=== PATIENT | female | born 1970 | race Caucasian/White ===

== ENCOUNTER 2022-11-29 11:54 | Emergency (ER) | payer BC, SELFPAY ==
[2022-11-29 12:06] VITALS: BP 150/86; PULSE 81; RESP 16; TEMP 36.5; O2SAT 99
--- NOTE | 2022-11-29 12:29 | ED.EXTPRO ---
HPI - Extremity Problem General Chief complaint: Unspecified Stated complaint: right hip pain Time Seen by Provider: 11/29/22 12:29 Source: patient and RN notes reviewed Mode of arrival: ambulatory Limitations: no limitations History of Present Illness HPI Narrative: 52 year old female presents with concern for right hip pain for 2 weeks. She denies injury or trauma. She has been remodeling a house and has been more active. She reports her hip is only mildly painful when she walks, she reports it is mostly painful when she has been sitting for a while and she stands that. Reports she has been sitting in down on the floor ?[place] style? a lot while remodeling her bathroom. She reports she has been taking ibuprofen daily with some mild relief. She reports a feeling like her thigh is ?asleep?. She denies weakness in the lower extremity. She denies back pain, groin pain, problems with bowel or bladder. MD Complaint: extremity pain Related Data Home Medications Medication Instructions Recorded Confirmed cetirizine 10 mg tablet (Zyrtec) 10 mg PO DAILY 11/29/22 11/29/22 fluticasone propionate 50 1 spray intranasal DAILY 11/29/22 11/29/22 mcg/actuation nasal spray,suspension lansoprazole 30 mg capsule,delayed 30 mg PO DAILY 11/29/22 11/29/22 release (Prevacid) meclizine 25 mg tablet 25 mg PO BID PRN Dizziness Or 11/29/22 11/29/22 Vertigo Allergies Allergy/AdvReac Type Severity Reaction Status Date / Time codeine Allergy Mild Other Verified 11/29/22 12:05 hydrocodone Allergy Mild Other Verified 11/29/22 12:05 sulfamethoxazole Allergy Mild makes Verified 11/29/22 12:05 sick trimethoprim Allergy Mild makes Verified 11/29/22 12:05 sick Estrogens Allergy Unknown FROM Verified 11/29/22 12:05 CONTROL PILLS Progestins Allergy Unknown FROM Verified 11/29/22 12:05 CONTROL PILLS HYDROCODONE BIT Allergy Mild HEART RACES Uncoded 11/29/22 12:05 PCN Allergy Mild VAGINAL Uncoded 11/29/22 12:05 IRRITATION Review of Systems Review of Systems: CONSTITUTIONAL: Denies malaise, chills, sweats, or fever. CARDIOVASCULAR: Denies chest pain, palpitations, or edema. RESPIRATORY: Denies cough or dyspnea. SKIN: Denies rash or itching, bruising, redness, swelling. MUSCULOSKELETAL: Reports right hip pain NEUROLOGIC: Denies numbness, weakness All systems reviewed & are unremarkable except as noted in HPI and below PMFSH Family History Family History (Updated 12/14/13 @ 07:13 by DOCTOR UNKNOWN) Mother Hypertension Social History Social History Smoking status: Never smoker Alcohol intake: never Comments At time of signature, agree with nursing past medical, surgical, social and family history. There is no relevant family history pertinent to the presenting complaint Exam Narrative: GENERAL: Well-appearing, well-nourished, and in no acute distress. HEAD: Normocephalic, atraumatic. EYES: PERRLA, conjunctivae clear NECK: Supple. CHEST: Speaks in full sentences. No respiratory distress. HEART: Regular rate and rhythm. Normal and equal peripheral pulses. EXTREMITIES: Right hip and lower extremity has grossly normal strength and sensation, normal range of motion. No edema or ecchymosis. 5/5 strength with hip abduction and adduction. Normal sensation with sensitivity to light touch and pain. Lateral hip tenderness, no low back tenderness, groin tenderness, thigh tenderness. No open wounds, no skin tenting, no devitalized tissue or atrophy, no trophic changes, no obvious deformity, alignment normal, nearby joints and structures intact. Distal pulses palpable and equal bilaterally, skin warm, dry, pink. Capillary refill less than 3 seconds. SKIN: Warm, dry, no rash. NEURO: Alert and oriented x3. PSYCH: Normal mood and affect Course Course Emergency Course: Patient did not have any trauma or injury to her hip. Patient's pain and tenderness appears to be lateral rath
== END 2022-11-29 12:45 | disposition home or self-care (01) ==
PROVIDERS: Emergency Provider Nurse Practitioner; PCP Nurse Practitioner
DX: M25.551 Pain in right hip (principal); R01.1 Cardiac murmur, unspecified; I34.1 Nonrheumatic mitral (valve) prolapse; K21.9 Gastro-esophageal reflux disease without esophagitis
CPT/HCPCS: 99213; G0463

== ENCOUNTER 2024-01-22 08:16 | Emergency (ER) | payer OTHER, SELFPAY ==
--- NOTE | ~2024-01-22 | XR_ITS ---
EXAMINATION: XR chest 2V DATE: 01/22/2024 08:50 INDICATION: Nonproductive cough TECHNIQUE: PA and lateral views of the chest were obtained. COMPARISON: None FINDINGS: Patchy airspace opacity anterior left upper lobe and in the lingula consistent with pneumonia. No pul monary edema, pleural effusion or pneumothorax. The cardiomediastinal silhouette is normal. Cholecyst ectomy clips in right upper quadrant. IMPRESSION: 1. Patchy airspace opacities in the left upper lobe and lingula consistent with pneumonia Reviewed, dictated and finalized at location A.
[2024-01-22 08:27] VITALS: BP 154/83; PULSE 95; RESP 16; TEMP 36.7; O2SAT 99
[2024-01-22 08:28] VITALS: BP 154/83; PULSE 95; RESP 16; TEMP 36.7; O2SAT 99
--- NOTE | 2024-01-22 08:30 | ED.URI ---
HPI - URI/Sore Throat General Chief Complaint: Upper Respiratory Infection Stated Complaint: sore throat,fever,loss of voice,cough,PEÑA Time Seen by Provider: 01/22/24 08:30 Source: patient, RN notes reviewed and old records reviewed Mode of arrival: ambulatory Limitations: no limitations History of Present Illness HPI Narrative: Patient presents with complaints of body aches, fever, cough. Symptoms began 5 days ago. She now has a hoarse voice, sore throat, headache along with her other symptoms. She has been taking Tylenol and ibuprofen with moderate relief. She has also been using cough drops, states that is not helping her cough very much. She denies any shortness of breath or wheezing. She voices no other concerns or complaints today. She is not in any distress Related Data Home Medications Medication Instructions Recorded Confirmed cetirizine 10 mg tablet (Zyrtec) 10 mg PO DAILY 11/29/22 01/22/24 fluticasone propionate 50 1 spray intranasal DAILY 11/29/22 01/22/24 mcg/actuation nasal spray,suspension lansoprazole 30 mg capsule,delayed 30 mg PO DAILY 11/29/22 01/22/24 release (Prevacid) meclizine 25 mg tablet 25 mg PO BID PRN Dizziness Or 11/29/22 01/22/24 Vertigo Allergies Allergy/AdvReac Type Severity Reaction Status Date / Time codeine Allergy Mild Other Verified 01/22/24 08:27 hydrocodone Allergy Mild Other Verified 01/22/24 08:27 sulfamethoxazole Allergy Mild makes Verified 01/22/24 08:27 sick trimethoprim Allergy Mild makes Verified 01/22/24 08:27 sick Estrogens Allergy Unknown FROM Verified 01/22/24 08:27 CONTROL PILLS Progestins Allergy Unknown FROM Verified 01/22/24 08:27 CONTROL PILLS HYDROCODONE BIT Allergy Mild HEART RACES Uncoded 01/22/24 08:27 PCN Allergy Mild VAGINAL Uncoded 01/22/24 08:27 IRRITATION Review of Systems Review of Systems: All systems reviewed & are unremarkable except as noted in HPI and below Constitutional: Constitutional: Reports no additional constitutional complaints, Reports fever(s), Reports headache(s) and Reports lethargy ENT: Reports system reviewed and no additional complaints, except as documented, Reports as per HPI, Reports hoarseness and Reports sore throat Cardiovascular: Cardiovascular: Reports as per HPI and Reports no additional cardiovascular complaints Respiratory: Respiratory: Reports as per HPI, Reports no additional respiratory complaints, Reports chest congestion and Reports pain with cough Gastrointestinal: Gastrointestinal: Reports no additional gastrointestinal complaints PMFSH Family History Family History Mother Hypertension Social History Social History Smoking status: Never smoker Alcohol intake: never Comments At the time of my signature, I reviewed and agree with the nursing past medical, surgical, social, and family history. There is no relevant family history pertinent to the patient complaint. Exam Const: General: cooperative, no acute distress, alert and awake Orientation/consciousness: oriented to person, oriented to place and oriented to time HENMT: Head: normal to inspection Ears: TM's normal bilaterally Mouth: Yes moist mucous membranes Throat: posterior oropharynx normal Resp: Effort & Inspection: normal respiratory effort and able to speak in complete sentences Auscultation: clear to auscultation bilaterally, no crackles, no rales, no rhonchi and no wheezes Cardio: Palpation: normal PMI Rate: regular rate Rhythm: regular rhythm Heart sounds: S1 normal heart sound present and S2 normal heart sound present Neuro: General: oriented to person, oriented to place and oriented to time Cranial nerves: Yes CN's II-XII intact bilaterally Psych: Appearance: grossly normal Thought process: Normal thought process present Insight: Good insight present (Psy
== END 2024-01-22 09:19 | disposition home or self-care (01) ==
PROVIDERS: Emergency Provider Nurse Practitioner Family; PCP Nurse Practitioner
DX: J18.9 Pneumonia, unspecified organism (principal)
CPT/HCPCS: 71046; 99213; G0463